=== PATIENT | female | born 1995 | race Caucasian/White ===

== ENCOUNTER → 2017-01-23 12:41 | Outpatient (CLI) | payer MEDICARE | END | disposition home or self-care (01) | LOC: D.NM 12:41 | DX: R10.9 Unspecified abdominal pain (principal) ==

== ENCOUNTER 2018-10-22 22:05 | Emergency (ER) | payer MEDICARE ==
[~2018-10-22] VITALS: Ht 172.7 cm; Wt 109.1 kg
[2018-10-22 22:16] VITALS: Ht 172.7 cm; Wt 109.1 kg
[2018-10-22] MEDS ORDERED: BYSTOLIC20 MG PO (22:17)
[2018-10-22] MEDS ORDERED: [UNRECOGNIZED DRUG - OTHER] (22:17)
[2018-10-22 22:51] LABS: BASOPHILS 0.2 % (0-2); EOSINOPHILS 0.7 % (0-7); HEMATOCRIT 36.5 % (36.0-48.0); HEMOGLOBIN 12.4 g/dL (12-16); IMMATURE GRANULOCYTES 0.2 % (0-5); LYMPHOCYTES 28.9 % (15-50); MCH 30.8 pg (26.0-34.0); MCV 90.6 fL (80.0-100.0); MEAN PLATELET VOLUME 8.9 fL (7.4-10.4); MONOCYTES 6.2 % (2-11); NEUTROPHILS 63.8 % (40-80); PLATELET COUNT 322 10x3/uL (130-400); RBC 4.03 10x6/uL (4.00-5.40); RDW 12.5 % (11.5-14.5); WBC 9.6 10x3/uL (4.8-10.8)
[2018-10-22 23:12] LABS: ALBUMIN 3.6 g/dL (3.4-5.0); ALKALINE PHOSPHATASE 68 U/L (46-116); ALT (SGPT) 35 U/L (10-68); BILIRUBIN - TOTAL 0.26 mg/dL (0.2-1.3); CALC OSMOLALITY 275 mosm/kg (275-300); CALCIUM 9.4 mg/dL (8.5-10.1); CHLORIDE - SERUM 102 mmol/L (98-107); CREATININE - SERUM 0.9 mg/dL (0.6-1.3); GLUCOSE 108 mg/dL (74-106); POTASSIUM - SERUM 3.2 mmol/L (3.5-5.1); PROTEIN - SERUM 7.5 g/dL (6.4-8.2); SODIUM 137 mmol/L (136-145); UREA NITROGEN 14 mg/dL (7-18); eGFR NON AFRICAN AMERICAN 83 mL/min (90-120)
[2018-10-22 23:13] LABS: APPEARANCE CLEAR (CLEAR); BILIRUBIN NEGATIVE (NEGATIVE); COLOR YELLOW (YELLOW); GLUCOSE NEGATIVE (NEGATIVE); KETONE NEGATIVE (NEGATIVE); NITRITE NEGATIVE (NEGATIVE); PROTEIN NEGATIVE (NEGATIVE); UROBILINOGEN NORMAL (NORMAL)
[2018-10-22 23:36] LABS: HCG - QUANTITATIVE (MATERNAL) 41162 mIU/mL
[2018-10-23 00:36] VITALS: BP 138/81
== END 2018-10-23 00:36 | disposition home or self-care (01) ==
LOC: D.ER 22:05
PROVIDERS: Emergency Medicine
DX: O20.8 Other hemorrhage in early pregnancy (principal); Z3A.01 Less than 8 weeks gestation of pregnancy

== ENCOUNTER → 2018-11-20 17:12 | Outpatient (CLI) | payer MEDICARE ==
[2018-10-22 22:16] VITALS: BMI 36.5
[~2018-11-20 17:12] MED LIST: BYSTOLIC20 MG PO; [UNRECOGNIZED DRUG - OTHER]
[2018-11-20 17:40] LABS: BASOPHILS 0.1 % (0-2); EOSINOPHILS 0.6 % (0-7); HEMATOCRIT 36.5 % (36.0-48.0); HEMOGLOBIN 12.7 g/dL (12-16); IMMATURE GRANULOCYTES 0.1 % (0-5); LYMPHOCYTES 21.4 % (15-50); MCH 31.5 pg (26.0-34.0); MCHC 34.8 g/dL (31.0-37.0); MCV 90.6 fL (80.0-100.0); MEAN PLATELET VOLUME 8.7 fL (7.4-10.4); MONOCYTES 6.2 % (2-11); NEUTROPHILS 71.6 % (40-80); PLATELET COUNT 336 10x3/uL (130-400); RBC 4.03 10x6/uL (4.00-5.40); RDW 12.8 % (11.5-14.5); WBC 9.3 10x3/uL (4.8-10.8)
[2018-11-20 17:57] LABS: APTT 29.2 SECONDS (22.8-39.4); INR 0.97 (0.85-1.17); PROTIME 12.4 SECONDS (11.6-15.0)
[2018-11-20 18:04] LABS: APPEARANCE CLEAR (CLEAR); BILIRUBIN NEGATIVE (NEGATIVE); COLOR YELLOW (YELLOW); GLUCOSE NEGATIVE (NEGATIVE); KETONE NEGATIVE (NEGATIVE); NITRITE NEGATIVE (NEGATIVE); PROTEIN NEGATIVE (NEGATIVE); SPECIFIC GRAVITY 1.015 (1.005-1.020); UROBILINOGEN NORMAL (NORMAL)
== END | disposition home or self-care (01) ==
LOC: D.LABREF 17:12
PROVIDERS: ATTEND Physician Assistant Medical
DX: R10.2 Pelvic and perineal pain (principal); N93.9 Abnormal uterine and vaginal bleeding, unspecified

== ENCOUNTER → 2019-06-20 16:06 | Outpatient (CLI) | payer BC ==
[2018-10-22 22:16] VITALS: BMI 36.5
== END | disposition home or self-care (01) ==
LOC: D.RAD 16:06
PROVIDERS: ATTEND Urology
DX: N20.0 Calculus of kidney (principal)

== ENCOUNTER → 2019-06-24 12:59 | Outpatient (CLI) | payer BC ==
[2018-10-22 22:16] VITALS: BMI 36.5
== END | disposition home or self-care (01) ==
LOC: D.CT 12:59
PROVIDERS: ATTEND Urology
DX: N20.0 Calculus of kidney (principal)